=== PATIENT | female | born 1955 | race Caucasian/White ===

== ENCOUNTER → 2017-11-27 | Outpatient (CLI) | payer OTHER ==
[~2017-11-27] MED LIST: CIP500 PO; DON PO; LIS20 PO; ROS10 PO
--- NOTE | 2017-11-28 10:28 | RADIOLOGY IMAGING REPORT ---
FACILITY: [facility] - [place] PATIENT NAME: RAFAELA COY : [id number] MR: [id number] V: [id number] EXAM DATE: ORDERING PHYSICIAN: MALLORY MARIE TECHNOLOGIST: Karina Arcos PROCEDURE:BILATERAL DIGITAL SCREENING MAMMOGRAM WITH CAD ASSISTED INTERPRETATION & 3D TOMOSYNTHESIS COMPARISON:Prior mammograms 11/08/15, 10/19/14, 08/19/13, 05/02/12, 12/04/10. INDICATIONS:SCREENING FINDINGS: Moderately dense fibroglandular tissue is seen throughout the breasts. The parenchymal pattern has remained stable allowing for difference in mammographic technique & patient positioning. There is no evidence of malignant appearing mass, malignant appearing calcifications or other secondary sign of malignancy in either breast. DIAGNOSTIC CATEGORY 1--NEGATIVE. RECOMMENDATIONS: ROUTINE MAMMOGRAM AND CLINICAL EVALUATION. IMPRESSION: BIRADS 1: Negative No significant abnormality is seen. Dictated by: Day Dean M.D. on 11/27/2017 at 16:21 Transcribed by: FRANCISCO JAVIER on 11/27/2017 at 16:23 Approved by: Day Dean M.D. on 11/28/2017 at 10:27 [facility]
== END ==
LOC: MAMO 07:50
PROVIDERS: ATTEND Family Medicine
DX: Z12.31 Encounter for screening mammogram for malignant neoplasm of breast (principal)
CPT/HCPCS: 77063; 77067